=== PATIENT | female | born 1960 | race Caucasian/White ===

== ENCOUNTER 2016-09-19 14:49 | Inpatient (IN) ==
--- NOTE | 2016-09-18 22:17 | Discharge Summary ---
<Fay Nayak L - Last Filed: 09/18/16 22:13> Date of Encounter: 09/18/16 - Discharge Diagnosis (1) Arthritis of right hip Priority: Primary Status: Acute (2) DMII (diabetes mellitus, type 2) Priority: Secondary Status: Chronic Qualifiers: Diabetes mellitus complication status: with unspecified complications Diabetes mellitus retirement insulin use: unspecified retirement insulin use status Qualified Code(s): E11.8 - Type 2 diabetes mellitus with unspecified complications (3) Tobacco use Priority: Secondary Status: Chronic (4) Chronic pain Priority: Secondary Status: Chronic Comments: Plan to continue Chronic pain medication [place] 10/325 q 6 hours #120 - LD 08/15/16 Qualifiers: Chronic pain type: other chronic pain Qualified Code(s): G89.29 - Other chronic pain (5) Latex allergy Priority: Secondary Status: Chronic - Discharge Medications Home Medications: Lidocaine Patch [Lidoderm 5% patch] 1 each TP DAILY #30 adh..patch 09/18/16 [Rx] Meloxicam 15 mg PO DAILY #30 tablet 09/18/16 [Rx] Aspirin [Lo-Dose Aspirin EC] 81 mg PO DAILY 09/19/16 [History] Atorvastatin [Lipitor] 10 mg PO HS 09/19/16 [History] Ergocalciferol (VITAMIN D2) [Vitamin D2] 50,000 unit PO FR 09/19/16 [History] Folic Acid 1 mg PO DAILY 09/19/16 [History] Gabapentin [Neurontin] 300 mg PO TID 09/19/16 [History] HYDROcodone/Acet 10/325 mg [[place] 10-325 mg] 1 tab PO Q6HR PRN 09/19/16 [History ] Linagliptin [Tradjenta] 5 mg PO DAILY 09/19/16 [History] Metformin HCl [Metformin HCl ER] 1,000 mg PO DAILY 09/19/16 [History] Omeprazole [PriLOSEC] 40 mg PO DAILY 09/19/16 [History] Tizanidine HCl 4 mg PO TID PRN 09/19/16 [History] Allergies/Adverse Reactions: Allergies baclofen Adverse Reaction (Verified 09/19/16 15:10) Vomiting celecoxib [From Celebrex] Adverse Reaction (Verified 09/19/16 15:10) See Comments stroke like symptoms latex Adverse Reaction (Verified 09/19/16 15:17) Blister tested positive on 09/08/16 rofecoxib [From Vioxx] Adverse Reaction (Verified 09/19/16 15:10) See Comments stroke like symptoms Primary care physician: Diogenes Fritz MD - Patient Status Disposition: Home, Self-Care Condition: Good - Discharge Instructions Follow Up With: Diogenes Fritz MD [Primary Care Provider] - - Hospital Course Hospital course: Ms. 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 insulin use: unspecified retirement insulin use status Qualified Code(s): E11.8 - Type 2 diabetes mellitus with unspecified complications (3) Tobacco use Priority: Secondary Status: Chronic (4) Chronic pain Status: Chronic Qualifiers: Chronic pain type: other chronic pain Qualified Code(s): G89.29 - Other chronic pain (5) Acute blood loss anemia Priority: Primary Status: Acute (6) Latex allergy Priority: Secondary Status: Chronic Labs on day of discharge: Labs from last 24 hours 09/19/16 15:27 POC Glucose 101 H Primary care physician: Diogenes Fritz MD - Patient Status Functional capacity at discharge: uses cane/walker Overall status at discharge: patient is progressing back to baseline - Hospital Course Hospital course: Ms. Hanna is a 55 year old female The patient had an uneventful postoperative course. They received antibiotics and physical therapy and were discharged in stable condition. There will follow -up in the office in 2 weeks. Aspirin DVT prophylaxis - Time Spent with Patient Total time spent providing and/or coordinating discharge services:
[2016-09-19] MEDS ORDERED: CeFAZolin Pre 2,000 MG/100 ML 2,000 MG/100 ML BAG IVPB ONE (15:31)
[2016-09-19] MEDS ORDERED: Ringers Solution, Lactated 1,000 ML IVC SCH ×2 (15:45→20:36)
--- NOTE | 2016-09-19 15:48 | Anesthesia Evaluation PreOp ---
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 History: Other (scoliosis) Other Medical History: Diabetes Type II, GERD Anesthesia History: No Prior Anesthetic Complications, Past Anesthesia Alcohol Use: none Drug use: none Medications and Allergies Lidocaine Patch [Lidoderm 5% patch] 1 each TP DAILY #30 adh..patch 09/18/16 [Rx] Meloxicam 15 mg PO DAILY #30 tablet 09/18/16 [Rx] Aspirin [Lo-Dose Aspirin EC] 81 mg PO DAILY 09/19/16 [History] Atorvastatin [Lipitor] 10 mg PO HS 09/19/16 [History] Ergocalciferol (VITAMIN D2) [Vitamin D2] 50,000 unit PO FR 09/19/16 [History] Folic Acid 1 mg PO DAILY 09/19/16 [History] Gabapentin [Neurontin] 300 mg PO TID 09/19/16 [History] HYDROcodone/Acet 10/325 mg [[place] 10-325 mg] 1 tab PO Q6HR PRN 09/19/16 [History ] Linagliptin [Tradjenta] 5 mg PO DAILY 09/19/16 [History] Metformin HCl [Metformin HCl ER] 1,000 mg PO DAILY 09/19/16 [History] Omeprazole [PriLOSEC] 40 mg PO DAILY 09/19/16 [History] Tizanidine HCl 4 mg PO TID PRN 09/19/16 [History] Allergies baclofen Adverse Reaction (Verified 09/19/16 15:10) Vomiting celecoxib [From Celebrex] Adverse Reaction (Verified 09/19/16 15:10) See Comments stroke like symptoms latex Adverse Reaction (Verified 09/19/16 15:17) Blister tested positive on 09/08/16 rofecoxib [From Vioxx] Adverse Reaction (Verified 09/19/16 15:10) See Comments stroke like symptoms - Meds/Allergy Pre-op Review Medications Reviewed: Yes Allergies Reviewed: Yes Beta Blockers on Current Med List: No Anesthesia Results - Labs Laboratory Tests 09/08/16 09/08/16 09/08/16 08:08 08:11 08:11 WBC 3.4 L Hgb 12.5 Hct 39.9 Plt Count 332 PT 12.1 INR 1.1 APTT 31.4 Sodium 141 Potassium 3.9 BUN 14 Creatinine 0.80 - Imaging EKG: report reviewed (09/07/2016 SR, possible LAE) Anesthesia Exam O2 Sat Height 1.63 m Height 1.63 m Weight 54.431 kg Weight 54.431 kg O2 Sat by Pulse Oximetry 96 Vital Signs Temp Pulse Resp BP Pulse Ox 98.8 F 92 18 152/101 96 09/19/16 15:39 09/19/16 15:39 09/19/16 15:39 09/19/16 15:39 09/19/16 15:39 Blood glucose: 101 Height: 5'4'' Weight: 120 lbs NPO (# of Hours): 8 Pain Scale: 7 (back) Pain Scale Used: Numeric (1 - 10) - HEENT Pupil (Motor): EOMI Mallampati: II Teeth: Normal Oral Opening: Greater than 3 - STARCH TREATING ASSISTANT LOC: Oriented STARCH TREATING ASSISTANT Motor: Normal RUE, Normal LUE, Normal RLE, Normal LLE, Normal Face STARCH TREATING ASSISTANT Sensory: Normal: RUE, LUE, RLE, LLE, Face - Cardiac Rhythm: Regular Murmur: None - Pulmonary Breath Sounds: bilateral Clear Respiratory Effort: Symmetrical Anesthesia Assess/Plan ASA Score: 2 Modified [place] Scale for Level of Consciousness: Cooperative, oriented, and tranquil Anesthetic Plan: General Monitoring Plan: Standard Monitors Recovery Plan: PACU
--- NOTE | 2016-09-19 15:58 | History & Physical Report ---
Date of Encounter: 09/19/16 Time of Encounter: 15:58 24 Hour HP Update - Instructions Instructions: If the History and Physical is less than 30 days old and was completed prior to A.M. admission and or procedure and has NOT been updated on calendar day of procedure please complete this update prior to performing procedure. - Update Patient reports changes in Medical Condition: No Changes in examination, assessment, or condition: No Changes in Medication: No Preop tests/diagnostics Reviewed: Yes Surgery Remains Indicated: Yes Consent for Planned Operative Procedure(s) Verified: Yes - Pre-Operative Checklist Preoperative Checklist Indicated: No Prophylactic Antibiotic Ordered: Yes Is VTE Prophylaxis Indicated?: Yes
[2016-09-19] MEDS ORDERED: Famotidine 20 MG/2 ML VIAL IVP ONE (16:05)
[2016-09-19] MEDS ORDERED: Acetaminophen IV 1,000 MG/100 ML INFUS..BTL IVPB ONE (16:21)
[2016-09-19] MEDS ORDERED: *HR* FentaNYL (PF) 100 MCG/2 ML VIAL ONE (17:23)
[2016-09-19] MEDS ORDERED: *HR* Enoxaparin 30 MG/0.3 ML SYRINGE SQ SCH (18:00)
[2016-09-19] MEDS ORDERED: *HR* Propofol 200 MG/20 ML VIAL IVP ONE (18:03)
[2016-09-19] MEDS ORDERED: Ondansetron 4 MG/2 ML VIAL ONE (18:13)
[2016-09-19] MEDS ORDERED: *HR* HYDROmorphone 2 MG/ML SYRINGE ONE (18:23)
[2016-09-19] MEDS ORDERED: *HR* Labetalol 20 MG/4 ML SYRINGE IVP ONE (18:28)
[2016-09-19] MEDS ORDERED: Ketorolac 30 MG/ML VIAL ONE (18:29)
--- NOTE | 2016-09-19 18:34 | Orthopedic Operative Note ---
Date of procedure: 09/19/16 Pre-op diagnosis: Right hip arthritis Post-op diagnosis: same Procedure: Procedure: Right Total Hip Replacment Estimated blood loss: 200 cc Hardware: Metal and polyethylene replacement. Biomet DM Cup: 52 G7 fin cup Femoral size 9 echo full profile lateralized stem Head: 0 head with Eboni Procedural Notes: Grade 4 arthritic changes femoral head acetabular socket. Operative procedure: The patient was brought to the operating room and placed on the operating room table. After general anesthesia was administered the patient was placed in the lateral decubitus position with the operative leg up. All pressure points were padded appropriately and the head was stabilized in the neutral position. The operative extremity was prepped and draped in the sterile surgical fashion patient received IV antibiotic prior to skin incision. A standard posterior approach is made to the operative hip, the incision was made through the skin and subcutaneous tissue hemostasis was obtained with Bovie cautery. Using careful sharp dissection the fascia was identified and incised exposing the external rotators. The external rotators were released off the greater trochanter and tagged with #2 FiberWire suture. The capsule was T'd open and the hip was brought into internal rotation. Patient noted to have grade 4 arthritic changes femoral head. The femoral neck cut was made at the appropriate level. An anterior capsulotomy was performed for the anterior retractor. Soft tissues removed from the acetabulum. Patient noted to have grade 4 arthritic changes acetabulum. Acetabulum was first reamed medially, and then reamed in 15 degrees of anteversion and 45 degrees off the horizontal. It was reamed up to the appropriate size 52 The appropriate-sized 52 acetabular cup was impacted in place in 15 degrees of anteversion and 45 degrees off the horizontal. This had good fit and fixation. The hip was brought back in to internal rotation and prepared with the box finisher followed by the canal finder followed by broaching process in 20 degrees anteversion. It was broached up to the appropriate size 9 The femoral implant was impacted in place in 20 degrees of anteversion. Trial reduction found the hip to be stable with 0 head and Eboni. The trials were removed and the real implants were impacted in place. The hip was reduced, patient had apparent equal leg lengths. The hip had excellent stability with forward flexion to 90 degrees adduction of 30 degrees and internal rotation of 60 degrees. The hip had no shuck. The hips after 2 minutes with a Betadine saline solution. It was irrigated out with 2 L of pulse irrigation. The external rotators were reattached to drill holes in the greater trochanter. Fascia was closed with a running #2 PDS suture. The deep tissue was irrigated and closed deep with #1 PDS suture superficially with 0 PDS suture and skin was closed with Dermabond and skin pastor. The patient was placed in a sterile dressing and abduction pillow. The patient was extubated and transferred to the recovery room in stable condition. Anesthesia: GETA Surgeon: Mirza Hernandez Condition: stable Disposition: PACU
[2016-09-19] MEDS ORDERED: *HR* HYDROmorphone (PF) 1 MG/ML SYRINGE IVP PRN ×2 (19:04→20:36)
[2016-09-19 19:28] LABS: Hemoglobin 11.5 g/dL (11.5-15.4)
--- NOTE | 2016-09-19 19:56 | Anesthesia Evaluation Post Op ---
Date of Encounter: 09/19/16 Time of Encounter: 19:55 - Vital Signs Vital Signs: Vital Signs/O2 Sat/Glucose, Most Current Temp Pulse Resp BP Pulse Ox 09/19/16 19:46 75 16 149/85 99 09/19/16 19:41 70 154/89 09/19/16 19:36 70 16 181/97 99 09/19/16 19:26 97.8 F 64 16 175/99 96 09/19/16 19:06 70 16 179/99 96 09/19/16 18:56 97.2 F L 61 10 136/88 99 - Lungs Lungs: Clear Ascult./Percussion - Airway Airway: Non-obstructed - Cardiovascular Regular Rate - Mental Status Mental Status: Asleep with brisk response to light stimulation - Pain Pain Scale: 2 - Nausea Vomiting Nausea Vomiting: Not Present - Hydration Hydration: NPO - Discharge PostOp Status: Transfer Patient to floor
[2016-09-19] MEDS ORDERED: Dextrose Gel 15 GM PO PRN ×2 (20:36)
[2016-09-19] MEDS ORDERED: Ondansetron 4 MG/2 ML VIAL IVP PRN (20:36)
[2016-09-19] MEDS ORDERED: *HR* OxyCODONE Immed Rel 5 MG TABLET PO PRN (20:36)
[2016-09-19] MEDS ORDERED: Sennosides 8.6 MG TABLET PO PRN (20:36)
[2016-09-19] MEDS ORDERED: tiZANidine 4 MG TABLET PO PRN (20:36)
[2016-09-19] MEDS ORDERED: Naloxone 0.4 MG/ML INJ IVP PRN (20:36)
[2016-09-19] MEDS ORDERED: D5% in Water 1,000 ML IVC PRN (20:36)
[2016-09-19] MEDS ORDERED: MOM Conc 10 ML UD.LIQ PO PRN (20:36)
[2016-09-19] MEDS ORDERED: *HR* Dextrose 50 % in Water (Syg) 50 ML SYRINGE IVP PRN (20:36)
[2016-09-19] MEDS ORDERED: Temazepam 15 MG CAPSULE PO PRN (20:36)
[2016-09-19] MEDS: Gabapentin 300 MG CAPSULE PO SCH (23:02)
[2016-09-19] MEDS: Insulin LISPRO 300 UNITS/3 ML VIAL SQ SCH (23:02)
[2016-09-19] MEDS: Ascorbic Acid 500 MG TABLET PO SCH (23:02)
[2016-09-19] MEDS ORDERED: Ringers Solution, Lactated 1,000 ML IVC ONE (23:34)
[2016-09-20] MEDS: ceFAZolin 2,000 MG in D5% in Water 100 ML IVPB SCH ×2 (00:36→10:07)
[2016-09-20] MEDS: *HR* OxyCODONE Immed Rel 5 MG TABLET PO PRN ×4 (02:54→20:00)
[2016-09-20] MEDS: *HR* Enoxaparin 30 MG/0.3 ML SYRINGE SQ SCH ×2 (05:26→17:46)
[2016-09-20 06:33] LABS: Hematocrit 30.8 % (35.3-44.9); Hemoglobin 9.6 g/dL (11.5-15.4)
--- NOTE | 2016-09-20 06:44 | Orthopedics Progress Note ---
Date of Encounter: 09/20/16 Time of Encounter: 06:44 - Assessment and Plan (1) Arthritis of right hip Current Visit: Yes Status: Acute (2) DMII (diabetes mellitus, type 2) Current Visit: Yes Status: Chronic Qualifiers: Diabetes mellitus complication status: with unspecified complications Diabetes mellitus ferry terminal agent insulin use: unspecified ferry terminal agent insulin use status Qualified Code(s): E11.8 - Type 2 diabetes mellitus with unspecified complications (3) Tobacco use Current Visit: Yes Status: Chronic (4) Chronic pain Current Visit: Yes Status: Chronic Qualifiers: Chronic pain type: other chronic pain Qualified Code(s): G89.29 - Other chronic pain Subjective Interval history: Patient was seen this morning doing well without complaints. Afebrile vital signs stable. Operative extremity: Neurovascularly intact Dressing clean dry and intact Calves nontender Assessment and plan: Continue with postoperative care Hematocrit 30 Objective Vital signs: Vital Signs Temp Pulse Resp BP Pulse Ox 09/20/16 04:10 98.5 F 92 16 95/58 94 09/20/16 00:56 98.5 F 95 16 97/63 96 09/20/16 00:20 98.3 F 87 14 105/64 98 09/19/16 22:45 97.9 F 99 14 87/51 98 09/19/16 21:41 97.7 F 105 16 99/60 98 09/19/16 21:00 98.7 F 87 16 128/79 100 09/19/16 20:20 97.5 F L 78 18 157/88 100 09/19/16 19:56 97.6 F 63 12 152/83 99 09/19/16 19:46 75 16 149/85 99 09/19/16 19:41 70 154/89 09/19/16 19:36 70 16 181/97 99 09/19/16 19:26 97.8 F 64 16 175/99 96 09/19/16 19:06 70 16 179/99 96 09/19/16 18:56 97.2 F L 61 10 136/88 99 09/19/16 15:39 98.8 F 92 18 152/101 96 Intake and Output 09/19/16 09/19/16 09/20/16 15:59 23:59 07:59 Intake Total 500 / 500 Output Total 200 / 200 Balance -200 / -200 500 / 500 Intake: IV Fluids 500 / 500 Lactated Ringers 1,000 ML 500 / 500 @ 75 mls/hr IVC .[id number] SUSY Rx#:[id number] Output: Estimated Blood Loss 200 / 200 Other: Weight 54.431 kg Blood Glucose* 101 119 - Labs CBC & BMP: 09/20/16 05:52 Labs: Abnormal lab results Hgb 9.6 g/dL (11.5-15.4) L D 09/20/16 05:52 Hct 30.8 % (35.3-44.9) L 09/20/16 05:52 POC Glucose 119 (58-89) H 09/19/16 20:25 - VTE Documentation of Mechanical Device: Venous foot pump, device Consult Discharge Plan - Plan Referrals: Diogenes Fritz MD [Primary Care Provider] -
[2016-09-20 06:49] LABS: BUN/Creatinine Ratio 20 (6-26); Blood Urea Nitrogen 16 mg/dL (7-20); Calcium 8.6 mg/dL (8.6-10.8); Carbon Dioxide 25 mEq/L (19-29); Chloride 102 mEq/L (98-109); Glucose 123 mg/dL (70-99); Osmolality,Calculated 283 (280-300); Sodium 135 mEq/L (136-145); eGFR For African Americans > 60 (> 60); eGFR For Non-African Americans > 60 (> 60)
[2016-09-20] MEDS: Insulin LISPRO 300 UNITS/3 ML VIAL SQ SCH ×4 (08:07→20:01)
[2016-09-20] MEDS: Ascorbic Acid 500 MG TABLET PO SCH ×2 (09:08→15:51)
[2016-09-20] MEDS: Aspirin Enteric Coated 81 MG Tablet PO SCH (09:08)
[2016-09-20] MEDS: (Linagliptin [Tradjenta] 5 MG) PO SCH (09:09)
[2016-09-20] MEDS: Folic Acid 1 MG TABLET PO SCH (09:09)
[2016-09-20] MEDS: Gabapentin 300 MG CAPSULE PO SCH ×3 (09:09→20:01)
[2016-09-20] MEDS: *HR* Metformin 500 MG TABLET PO SCH (09:09)
[2016-09-20] MEDS: Multivit/Ca/Min/Fe/FA 1 TAB TABLET PO SCH (09:09)
[2016-09-21] MEDS: *HR* OxyCODONE Immed Rel 5 MG TABLET PO PRN ×5 (01:20→23:02)
[2016-09-21 05:58] LABS: Hematocrit 27.7 % (35.3-44.9); Hemoglobin 8.9 g/dL (11.5-15.4)
[2016-09-21] MEDS: *HR* Enoxaparin 30 MG/0.3 ML SYRINGE SQ SCH ×2 (05:58→18:19)
[2016-09-21 06:16] LABS: BUN/Creatinine Ratio 15 (6-26); Blood Urea Nitrogen 10 mg/dL (7-20); Calcium 8.5 mg/dL (8.6-10.8); Carbon Dioxide 26 mEq/L (19-29); Chloride 98 mEq/L (98-109); Glucose 134 mg/dL (70-99); Osmolality,Calculated 275 (280-300); Potassium 4.1 mEq/L (3.5-4.5); Sodium 132 mEq/L (136-145); eGFR For African Americans > 60 (> 60); eGFR For Non-African Americans > 60 (> 60)
[2016-09-21] MEDS ORDERED: Furosemide 20 MG/2 ML VIAL IVP ONE ×3 (06:55→20:00)
[2016-09-21] MEDS: Insulin LISPRO 300 UNITS/3 ML VIAL SQ SCH ×4 (07:38→20:45)
--- NOTE | 2016-09-21 08:07 | Orthopedics Progress Note ---
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 Afebrile vital signs stable. Operative extremity: Neurovascularly intact Dressing clean dry and intact Calves nontender Assessment and plan: Continue with postoperative care Hematocrit 28 discharged today Objective Vital signs: Vital Signs Temp Pulse Resp BP Pulse Ox 09/21/16 06:37 99.7 F H 108 16 133/85 97 09/20/16 23:51 99.4 F 104 16 118/70 96 09/20/16 17:49 98.8 F 96 16 129/82 93 09/20/16 14:55 98.8 F 124 18 106/74 97 09/20/16 10:51 98.4 F 56 16 107/73 93 09/20/16 09:28 96 09/20/16 08:37 89 16 96/65 96 Intake and Output 09/20/16 09/21/16 09/21/16 23:59 07:59 15:59 Intake Total 700 / 700 Balance 700 / 700 Intake: Oral 700 / 700 Other: # Voids 1 Blood Glucose* 120 136 - Labs CBC & BMP: 09/21/16 05:16 09/21/16 05:16 Labs: Abnormal lab results Hgb 8.9 g/dL (11.5-15.4) L 09/21/16 05:16 Hct 27.7 % (35.3-44.9) L 09/21/16 05:16 Sodium 132 mEq/L (136-145) L 09/21/16 05:16 Glucose 134 mg/dL (70-99) H 09/21/16 05:16 POC Glucose 120 (58-89) H 09/20/16 19:58 Calculated Osmolality 275 (280-300) L 09/21/16 05:16 Calcium 8.5 mg/dL (8.6-10.8) L 09/21/16 05:16 - VTE Documentation of Mechanical Device: Venous foot pump, device Consult Discharge Plan - Plan Referrals: Diogenes Fritz MD [Primary Care Provider] -
[2016-09-21] MEDS: (Linagliptin [Tradjenta] 5 MG) PO SCH (08:59)
[2016-09-21] MEDS: *HR* Metformin 500 MG TABLET PO SCH (08:59)
[2016-09-21] MEDS: Multivit/Ca/Min/Fe/FA 1 TAB TABLET PO SCH (09:00)
[2016-09-21] MEDS: Ascorbic Acid 500 MG TABLET PO SCH ×2 (09:00→16:25)
[2016-09-21] MEDS: Aspirin Enteric Coated 81 MG Tablet PO SCH (09:00)
[2016-09-21] MEDS: Folic Acid 1 MG TABLET PO SCH (09:00)
[2016-09-21] MEDS: Gabapentin 300 MG CAPSULE PO SCH ×3 (09:00→20:36)
[2016-09-21] MEDS ORDERED: 0.9 % Sodium Chloride 250 ML ONE ×2 (10:54→14:56)
[2016-09-22] MEDS: *HR* OxyCODONE Immed Rel 5 MG TABLET PO PRN ×3 (04:20→13:31)
[2016-09-22] MEDS: *HR* Enoxaparin 30 MG/0.3 ML SYRINGE SQ SCH (05:43)
--- NOTE | 2016-09-22 07:33 | Orthopedics Progress Note ---
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 Afebrile vital signs stable. Operative extremity: Neurovascularly intact Dressing clean dry and intact Calves nontender Assessment and plan: Continue with postoperative care Discharge held secondary to pain discharge Objective Vital signs: Vital Signs Temp Pulse Resp BP Pulse Ox 09/22/16 06:46 98.2 F 100 16 122/78 98 09/21/16 22:56 99.5 F 109 18 124/82 95 09/21/16 19:23 98.4 F 105 18 122/76 96 09/21/16 16:18 98.9 F 111 16 119/71 96 09/21/16 16:03 99.1 F 112 16 142/79 95 09/21/16 15:06 98.2 F 120 18 120/88 95 09/21/16 13:33 100.1 F H 106 15 136/82 97 09/21/16 11:22 9.5 F L 105 16 131/84 96 09/21/16 11:07 99.3 F 106 16 119/74 95 09/21/16 10:59 99.3 F 106 16 119/74 95 09/21/16 10:37 99.0 F 109 18 139/89 97 09/21/16 09:05 97 Intake and Output 09/21/16 09/21/16 09/22/16 15:59 23:59 07:59 Intake Total 1340 / 1340 400 / 400 Balance 1340 / 1340 400 / 400 Intake: IV Fluids 100 / 100 0.9 % Sodium Chloride 250 100 / 100 ML As .ROUTE .K-MED ONE Rx#:[id number] Oral 940 / 940 100 / 100 Blood Product 300 / 300 300 / 300 Rbcs Leuko Poor As-1 300 / 300 Unit [id number] Rbcs Leuko Poor As-1 300 / 300 Unit [id number] Other: Meal Breakfast Dinner Percent of Meal Consumed 80% 25% # Voids 2 1 Blood Glucose* 162 99 122 - Labs CBC & BMP: 09/21/16 05:16 09/21/16 05:16 Labs: Abnormal lab results Hgb 8.9 g/dL (11.5-15.4) L 09/21/16 05:16 Hct 27.7 % (35.3-44.9) L 09/21/16 05:16 Sodium 132 mEq/L (136-145) L 09/21/16 05:16 Glucose 134 mg/dL (70-99) H 09/21/16 05:16 POC Glucose 99 (58-89) H 09/21/16 20:42 Calculated Osmolality 275 (280-300) L 09/21/16 05:16 Calcium 8.5 mg/dL (8.6-10.8) L 09/21/16 05:16 - VTE Documentation of Mechanical Device: Venous foot pump, device Consult Discharge Plan - Plan Referrals: Diogenes Fritz MD [Primary Care Provider] -
[2016-09-22] MEDS: Gabapentin 300 MG CAPSULE PO SCH (08:53)
[2016-09-22] MEDS: Multivit/Ca/Min/Fe/FA 1 TAB TABLET PO SCH (08:53)
[2016-09-22] MEDS: Ascorbic Acid 500 MG TABLET PO SCH (08:53)
[2016-09-22] MEDS: Folic Acid 1 MG TABLET PO SCH (08:53)
[2016-09-22] MEDS: *HR* Metformin 500 MG TABLET PO SCH (08:54)
[2016-09-22] MEDS: Aspirin Enteric Coated 81 MG Tablet PO SCH (09:00)
[2016-09-22 09:11] LABS: Hematocrit 34.4 % (35.3-44.9)
[2016-09-22 09:18] LABS: Hemoglobin 11.5 g/dL (11.5-15.4)
[2016-09-22 11:02] VITALS: BP 105/71
[2016-09-22] MEDS: Insulin LISPRO 300 UNITS/3 ML VIAL SQ SCH ×2 (12:23→13:55)
[2016-09-22] MEDS: (Linagliptin [Tradjenta] 5 MG) PO SCH (13:55)
== END 2016-09-22 14:30 | disposition home or self-care (01) | DRG 301 ==
LOC: SAMDAY 14:49 → 3NENU 20:17
PROVIDERS: ADMIT Orthopaedic Surgery; ATTEND Orthopaedic Surgery